=== PATIENT | female | born 1970 | race Two or more races ===

== ENCOUNTER 2018-01-09 08:06 | Outpatient (CLI) | payer OTHER ==
[~2018-01-09 08:06] MED LIST: DOLOGESIC CAPSU1 CAP PO; SEPTRA DS TABLE1 TAB PO
== END 2018-01-09 08:14 | disposition home or self-care (01) ==
LOC: RAD 08:06
DX: R07.9 Chest pain, unspecified (principal)

== ENCOUNTER → 2018-01-20 | Day surgery (SDC) | payer OTHER ==
[~2018-01-20] MED LIST changes: +PERCOCET 5-3251 EACH PO; +SYNTHROID100 MCG PO
== END | disposition home or self-care (01) ==
LOC: CIR.AMB 05:40
DX: N93.8 Other specified abnormal uterine and vaginal bleeding (principal)

== ENCOUNTER 2022-04-22 08:04 | Outpatient (CLI) | payer OTHER | END 2022-04-22 08:07 | disposition home or self-care (01) | LOC: SONOGRAMA 08:04 | PROVIDERS: ATTEND Pathology Anatomic Pathology & Clinical Pathology | DX: E04.2 Nontoxic multinodular goiter (principal) ==

== ENCOUNTER 2024-08-03 09:41 | Emergency (ER) | payer OTHER ==
[~2024-08-03] VITALS: Ht 165.1 cm; Wt 95.3 kg
[~2024-08-03 09:41] MED LIST changes: +SYNTHROID100 MCG
[2024-08-03] MEDS ORDERED: SYNTHROID88 MCG PO (10:24)
[2024-08-03] MEDS ORDERED: FAMOtidine 10 MG/ML (4ML VIAL) IV STA (11:17)
[2024-08-03] MEDS ORDERED: RINGERS SOLUTION,LACTATED 1,000 ML IV STA (11:17)
[2024-08-03] MEDS ORDERED: ONDANSETRON HCL 2 MG/ML VIAL IV STA (11:17)
[2024-08-03 11:54] LABS: HEMATOCRIT 41.6 % (36.0-45.00); MEAN CELL VOLUME 94.5 fL (80.00-100.00); MEAN CORPUSCULAR HEMOGLOBIN 31.9 pg (27.00-32.0); MEAN CORPUSCULAR HGB CONC 33.8 g/dl (32.0-36.0); PLATELET COUNT 222 K/uL (150-450); RED CELL DISTRIBUTION WIDTH 14.1 % (11.5-14.5)
[2024-08-03 12:25] LABS: ALBUMIN 3.4 gm/dL (3.4-5.0); BILIRUBIN TOTAL 0.56 mg/dL (0.3-1.2); BILIRUBIN,CONJUGATED 0.15 mg/dL (0.0-0.2); BILIRUBIN,UNCONJUGATED 0.41 mg/dL (0.0-0.6); CALCIUM 9.7 mg/dL (8.5-10.1); CREATININE SERUM 1.11 mg/dL (0.55-1.02); GFR 51.22; POTASSIUM 3.65 mEq/L (3.5-5.1); TOTAL PROTEIN 7.5 gm/dL (6.4-8.2)
[2024-08-03 12:43] LABS: URINE BILIRRUBIN Moderate (NEGATIVE); URINE BLOOD Large; URINE GLUCOSE Negative (NEGATIVE); URINE LEUKOCYTE Small; URINE NITRATE Negative
[2024-08-03 12:44] LABS: URINE BACTERIA 157.4 uL (0.0-1933); URINE CAST 4.78 uL (0.0-1.40); URINE EPITHELIAL CELLS 12.3 uL (0.0-38.8); URINE RBC 2806.2 uL (0.0-20.8); URINE WBC 39.5 uL (0.0-23.2)
[2024-08-03 12:59] LABS: URINE KETONE 40 (NEGATIVE)
[2024-08-03 13:00] LABS: URINE APPEARANCE TURBID; URINE COLOR BROWN; URINE PROTEIN 100 (NEGATIVE)
[2024-08-03 13:02] LABS: URINE CRYSTALS FEW /HPF
[2024-08-03] MEDS ORDERED: PROMETHAZINE HCL 25 MG/ML AMPUL IM ONE (13:30)
[2024-08-03] MEDS ORDERED: MORPHINE SULFATE 4 MG/ML VIAL IV STA (13:47)
[2024-08-03] MEDS ORDERED: CEFTRIAXONE SODIUM 1,000 MG VIAL IV STA (16:06)
[2024-08-03] MEDS ORDERED: ACETAMINOPHEN WITH CODEINE 1 UDTAB TABLET PO ONE (18:15)
[2024-08-03] MEDS ORDERED: MAG HYDROX/ALUMINUM HYD/SIMETH 30 ML BLIST.PACK PO ONE (18:15)
[2024-08-03] MEDS ORDERED: ONDANSETRON 4 MG TAB.RAPDIS PO ONE (18:30)
== END 2024-08-03 19:15 | disposition home or self-care (01) ==
LOC: ER 09:43
PROVIDERS: General Practice
DX: N13.2 Hydronephrosis with renal and ureteral calculous obstruction (principal); E03.9 Hypothyroidism, unspecified; Z88.6 Allergy status to analgesic agent